=== PATIENT | female | born 1985 | race Caucasian/White ===

== ENCOUNTER 2017-03-21 16:26 | Observation (INO) | payer OTHER ==
[2017-03-21] MEDS ORDERED: DIAZEPAM 5 MG/ML 2 ML SYRINGE IVP STA (17:06)
[2017-03-21] MEDS ORDERED: KETOROLAC 30 MG/ML 1 ML VIAL IVP STA (17:20)
--- NOTE | 2017-03-21 17:36 | ED ---
Back Pain HPI - General Chief Complaint: Back Pain/Injury Stated Complaint: Back Pain Time Seen by Provider: 03/21/17 16:43 Source: patient, EMS Limitations: no limitations - History of Present Illness Initial Comments: Patient is a 32-year-old female with a past medical history of chronic low back pain who presents to the ED today via EMS for evaluation of low back pain. States that around 11 AM this morning she was leaning over to take a picture of something when she heard a pop in her back. She states she was unable to stand back up and instead laid on the ground. States she was able to crawl around her home, but was able to stand or walk. She called her mother who came over, applied heat and ice packs to her back as well as an icy hot patch. The patient and her mother attempted to do low back exercises which she has learned in her previous as ago therapy sessions. Patient states that despite these treatments she continued to have overwhelming low back pain. Her mother was concerned that she wouldn't be able to get her to the car so decision was made to call 911 for transfer to the emergency department for further evaluation. Patient received 50 g of fentanyl and route to the hospital. Patient reports pain is sharp, located in her back without radiation. She reports normal strength and sensation in her back. She denies any numbness of the perineum. Pain began suddenly after hearing a pop in her back. Patient denies fevers. She denies IV drug use or recent injections in the spine. She does believe she had a spinal injection for her 2 months ago, but had no symptoms afterward. Patient states that toradol and physical therapy have worked for her back pain in the past. She does admit to worsening low back pain during her for which she saw a chiropractor with significant improvement in her symptoms. Patient states she is currently breast feeding her 2 month old daughter so she has no concern about taking medications. - Related Data Home Medications Medication Instructions Recorded Confirmed Dextroamphetamine/Amphetamine 10 mg PO QAM 01/10/14 03/21/17 [Adderall] Acetaminophen-Codeine 300-30mg 2 tab PO BID PRN 03/21/17 03/21/17 [Tylenol #3] Ibuprofen [Motrin] 800 mg PO TID PRN 03/21/17 03/21/17 Venlafaxine HCl [Effexor XR] 75 mg PO HS 03/21/17 03/21/17 lamoTRIgine [LaMICtal] 100 mg PO HS 03/21/17 03/21/17 medroxyPROGESTERone [Depo-Provera] 150 mg IM Q90D 03/21/17 03/21/17 Allergies Allergy/AdvReac Type Severity Reaction Status Date / Time No Known Allergies Allergy Verified 01/10/14 00:35 Review of Systems ROS Statement: Those systems with pertinent positive or pertinent negative responses have been documented in the HPI. ROS Other: All systems not noted in ROS Statement are negative. Constitutional: Denies: fever, chills Respiratory: Denies: cough Cardiovascular: Denies: chest pain Endocrine: Denies: fatigue Gastrointestinal: Denies: abdominal pain, nausea, vomiting, constipation Genitourinary: Denies: urgency, dysuria, frequency Musculoskeletal: Reports: back pain Skin: Denies: rash, lesions, change in color Neurological: Reports: abnormal gait (cannot walk secondary to pain ). Denies: headache, weakness, numbness, paresthesias Hematological/Lymphatic: Denies: easy bleeding, easy bruising Past Medical History Past Medical History: GERD/Reflux Additional Past Medical History / Comment(s): ovarian cyst , hiatal hernia History of Any Multi-Drug Resistant Organisms: None Reported Past Surgical History: Section Past Psychological History: Depression Smoking Status: Current every day smoker Past Alcohol Use History: Occasional Past Drug Use History: None Reported General Exam Limitations: no limitations General appearance: alert, in distress Head exam: Present: atraumatic, normocephalic Eye exam: Present: PERRL ENT exam: Present: normal exam Neck exam: Present: normal inspection Respiratory exam: Present: normal lung sounds bilaterally. Absent: respiratory distress, wheezes Cardiovascular Exam: Present: regular rate GI/Abdominal exam: Present: soft. Absent: distended, tenderness, guarding, rebound Rectal exam: Present: normal inspection, normal rectal tone. Absent: decreased rectal tone, hemorrhoids, mass Extremities exam: Present: full ROM, normal capillary refill. Absent: tenderness, pedal edema Back exam: Present: normal inspection, tenderness, muscle spasm. Absent: CVA tenderness (R), CVA tenderness (L) Neurological exam: Present: alert, oriented X3, CN II-XII intact. Absent: motor sensory deficit Psychiatric exam: Present: agitated Skin exam: Present: warm, dry, intact, normal color. Absent: rash Course Vital Signs 03/21/17 03/21/17 03/21/17 16:33 17:26 18:56 Temperature 98.2 F 99.0 F Pulse Rate 83 59 L 61 Respiratory 22 18 18 Rate Blood Pressure 169/95 131/66 142/63 O2 Sat by Pulse 100 97 99 Oximetry 03/21/17 03/21/17 20:06 23:14 Temperature 97.9 F Pulse Rate 62 64 Respiratory 18 15 Rate Blood Pressure 138/73 124/78 O2 Sat by Pulse 97 99 Oximetry - Reevaluation(s) Reevaluation #1: Patient was reevaluated after Valium, x-ray results were discussed with the patient. Patient is still made no attempt to sit up, she states she is in too much pain to sit or stand. I had a long conversation with the patient about her back pain, patient and mother requesting computed tomography scan or MRI. I advised him that at this point there is no indication for CT at this time. Mother expressing concern that her grandfather's cancer was identified on computed tomography scan she is concerned because the patient has had a long history of low back pain. I advised her that she has no risk factors for metastatic disease and likely needs long-term follow-up with her primary care, neurosurgery or pain management regarding her back pain. At this time I will order steroids and re-evaluate 03/21/17 18:47 Reevaluation #2: Patient screaming in pain, states she cannot go home. Morphine ordered 03/21/17 19:18 Medical Decision Making - Medical Decision Making Patient was seen and evaluated, history obtained from patient History and physical exam with no red flags for acute back pain, however we will order x-ray Patient received Fentanyl en route Toradol and Valium ordered X-ray with no acute findings Patient screaming out in pain despite Fentanyl, Toradol, valium Patient resting steroid injection in her back, I advised her this is not done in the acute. It is not on by ER physicians. Systemic steroids were ordered Patient continues screaming out in pain, computed tomography scan was ordered as well as a second dose of narcotic pain medication D scan with the L5-S1 disc herniation Results were discussed with the patient, patient asking if this herniation to cause radiating pain down her right leg, I advised the patient that the herniation is to the left and unlikely to be causing her symptoms in addition her pain seemed to be at L1-L2 on initial physical exam Tj think this herniation is related to her acute pain Despite laying in bed comfortably the patient refuses to attempt to sit up, when the head of her bed was elevated she began screaming. Patient was given laid flat she reported felt better The workup in the emergency department has not identified any organic cause of the patient's pain, however the patient is unwilling to sit, stand or attempt to walk. Because of this I don't feel the patient is stable for discharge home and needs further evaluation. I do feel that based on the patient's history she is high risk of having psychosomatic pain, especially in the immediate period where she is clinically undergoing extreme psychological stress. Patient care was discussed with Dr. Latham who accepts the patient to observation unit for intractable pain - Lab Data Result diagrams: 03/21/17 19:40 03/21/17 19:40 Lab Results 03/21/17 03/21/17 03/21/17 Range/Units 19:40 19:40 20:00 WBC 7.4 (3.8-10.6) k/uL RBC 4.10 (3.80-5.40) m/uL Hgb 12.3 (11.4-16.0) gm/dL Hct 36.2 (34.0-46.0) % MCV 88.3 (80.0-100.0) fL MCH 30.0 (25.0-35.0) pg MCHC 33.9 (31.0-37.0) g/dL RDW 14.8 (11.5-15.5) % Plt Count 298 (150-450) k/uL Neutrophils % 61 % Lymphocytes % 33 % Monocytes % 3 % Eosinophils % 1 % Basophils % 0 % Neutrophils # 4.5 (1.3-7.7) k/uL Lymphocytes # 2.4 (1.0-4.8) k/uL Monocytes # 0.2 (0-1.0) k/uL Eosinophils # 0.1 (0-0.7) k/uL Basophils # 0.0 (0-0.2) k/uL Sodium 140 (137-145) mmol/L Potassium 3.6 (3.5-5.1) mmol/L Chloride 112 H (98-107) mmol/L Carbon Dioxide 20 L (22-30) mmol/L Anion Gap 8 mmol/L BUN 12 (7-17) mg/dL Creatinine 0.69 (0.52-1.04) mg/dL Est GFR (MDRD) Af Amer >60 (>60 ml/min/1.73 sqM) Est GFR (MDRD) Non-Af >60 (>60 ml/min/1.73 sqM) Glucose 86 (74-99) mg/dL Calcium 9.0 (8.4-10.2) mg/dL Urine Color Light Red Urine Appearance Cloudy H (Clear) Urine pH 6.0 (5.0-8.0) Ur Specific [place] 1.023 (1.001-1.035) Urine Protein 1+ H (Negative) Urine Glucose (UA) Negative (Negative) Urine Ketones Negative (Negative) Urine Blood Moderate H (Negative) Urine Nitrite Negative (Negative) Urine Bilirubin Negative (Negative) Urine Urobilinogen <2.0 (<2.0) mg/dL Ur Leukocyte Esterase Negative (Negative) Urine RBC >182 H (0-5) /hpf Urine WBC 3 (0-5) /hpf Ur Squamous Epith Cells 3 (0-4) /hpf Urine Mucus Occasional H (None) /hpf Urine HCG, Qual (Not Detectd) 03/21/17 Range/Units 20:00 WBC (3.8-10.6) k/uL RBC (3.80-5.40) m/uL Hgb (11.4-16.0) gm/dL Hct (34.0-46.0) % MCV (80.0-100.0) fL MCH (25.0-35.0) pg MCHC (31.0-37.0) g/dL RDW (11.5-15.5) % Plt Count (150-450) k/uL Neutrophils % % Lymphocytes % % Monocytes % % Eosinophils % % Basophils % % Neutrophils # (1.3-7.7) k/uL Lymphocytes # (1.0-4.8) k/uL Monocytes # (0-1.0) k/uL Eosinophils # (0-0.7) k/uL Basophils # (0-0.2) k/uL Sodium (137-145) mmol/L Potassium (3.5-5.1) mmol/L Chloride (98-107) mmol/L Carbon Dioxide (22-30) mmol/L Anion Gap mmol/L BUN (7-17) mg/dL Creatinine (0.52-1.04) mg/dL Est GFR (MDRD) Af Amer (>60 ml/min/1.73 sqM) Est GFR (MDRD) Non-Af (>60 ml/min/1.73 sqM) Glucose (74-99) mg/dL Calcium (8.4-10.2) mg/dL Urine Color Urine Appearance (Clear) Urine pH (5.0-8.0) Ur Specific [place] (1.001-1.035) Urine Protein (Negative) Urine Glucose (UA) (Negative) Urine Ketones (Negative) Urine Blood (Negative) Urine Nitrite (Negative) Urine Bilirubin (Negative) Urine Urobilinogen (<2.0) mg/dL Ur Leukocyte Esterase (Negative) Urine RBC (0-5) /hpf Urine WBC (0-5) /hpf Ur Squamous Epith Cells (0-4) /hpf Urine Mucus (None) /hpf Urine HCG, Qual Not Detected (Not Detectd) Disposition Clinical Impression: Lumbar back pain Disposition: ADMITTED IP TO THIS [facility] Condition: Good Time of Disposition: 23:06
--- NOTE | 2017-03-21 17:59 | XR ---
EXAMINATION TYPE: XR lumbar spine 2 or 3V DATE OF EXAM: 03/21/2017 COMPARISON: NONE HISTORY: Back pain TECHNIQUE: 3 views FINDINGS: Vertebrae are normal spacing and alignment. Posterior elements are intact. Sacroiliac joint s appear normal. IMPRESSION: Normal lumbar spine exam
[2017-03-21] MEDS ORDERED: methylPREDNISolone SOD SUCCI 125 MG/2 ML VIAL IV STA (18:29)
[2017-03-21] MEDS ORDERED: MORPHINE SULFATE 4 MG/ML SYRINGE IV ONE (19:17)
[2017-03-21 19:50] LABS: Basophils % (A) 0 %; CH 29.9; Eosinophils # (A) 0.1 k/uL (0-0.7); Eosinophils % (A) 1 %; HCT 36.2 % (34.0-46.0); HGB 12.3 gm/dL (11.4-16.0); Luc # (Auto) 0.08; Luc % (Auto) 1; Lymphocytes # (A) 2.4 k/uL (1.0-4.8); Lymphocytes % (A) 33 %; MCHC 33.9 g/dL (31.0-37.0); MCV 88.3 fL (80.0-100.0); Mean Platelet Volume 6.8; Monocytes # (A) 0.2 k/uL (0-1.0); Monocytes % (A) 3 %; Neutrophils # (A) 4.5 k/uL (1.3-7.7); Neutrophils % (A) 61 %; RDW 14.8 % (11.5-15.5); WBC 7.4 k/uL (3.8-10.6); WBC (Perox) 7.79
[2017-03-21 20:00] LABS: Anion Gap 8 mmol/L; Blood Urea Nitrogen 12 mg/dL (7-17); Carbon Dioxide 20 mmol/L (22-30); Chloride 112 mmol/L (98-107); Glucose 86 mg/dL (74-99); Non-African American GFR(MDRD) >60 (>60 ml/min/1.73 sqM); Potassium 3.6 mmol/L (3.5-5.1); Sodium 140 mmol/L (137-145)
[2017-03-21 20:24] LABS: Appearance,Urine Cloudy (Clear); Bilirubin,Urine Negative (Negative); Glucose,Urine (UA) Negative (Negative); Ketones,Urine Negative (Negative); Leukocyte Esterase,Urine Negative (Negative); Mucus,Urine Occasional /hpf; Nitrite,Urine Negative (Negative); Particle Count 9816; Protein,Urine 1+ (Negative); RBC,Urine >182 /hpf (0-5); Specific Gravity,Urine 1.023 (1.001-1.035); Squamous Epithelial Cell,Urine 3 /hpf (0-4); UA Billing (MACRO vs. MICRO) MICRO; Urobilinogen,Urine <2.0 mg/dL (<2.0); WBC,Urine 3 /hpf (0-5)
[2017-03-21] MEDS ORDERED: RX INFO: IV CONTRAST WAS GIVEN 1 EACH MISC MISCELLANE PRN (20:31)
--- NOTE | 2017-03-21 21:42 | CT ---
EXAMINATION TYPE: CT lumbar spine w con DATE OF EXAM: 03/21/2017 COMPARISON: NONE HISTORY: Lower back pain. No known injury. CT DLP: 1476.5 mGycm Automated exposure control for dose reduction was used. CONTRAST: CT scan of the lumbar is performed with IV Contrast, patient injected with 100 mL of Omnipaque 300. Enhanced CT of the lumbar spine was performed. Bone and soft tissue window settings are submitted as well as coronal and sagittal reconstructions. The lumbar vertebra have fairly normal alignment. There is a slight levoscoliosis. Disc spaces are no rmal. The posterior elements are intact. There is no sign of spinal stenosis. There is no lumbar para spinal mass. There is a mild to moderate posterior L5-S1 disc herniation into the spinal canal centrally and towar ds the left side. The neural foramina are fairly well maintained. I see no focal bone destruction. Th ere is no pathologic enhancement. IMPRESSION: Posterior central and left-sided L5-S1 disc herniation. No spinal stenosis. No fracture. Mild levosco liosis.
[2017-03-21] MEDS ORDERED: ACETAMINOPHEN TAB 325 MG TAB PO PRN (23:07)
[2017-03-21] MEDS ORDERED: NALOXONE 0.4 MG/ML 1 ML VIAL IV PRN (23:07)
[2017-03-21 23:44] VITALS: BMI 28.3
[2017-03-21 23:53] VITALS: RESP 16
[2017-03-22] MEDS: KETOROLAC 30 MG/ML 1 ML VIAL IVP PRN ×3 (01:41→13:26)
--- NOTE | 2017-03-22 10:13 | P.CNOR ---
History of Present Illness - HPI Consult date: 03/22/17 Consult reason: low back pain History of present illness: Patient is a 32-year-old female who has a long-standing history of low back pain but developed exacerbation of her back pain yesterday. She says that she was bending over to take pictures and arrange some items when she felt her back "go out". She says she had significant pain in her lower back and it spread down bilateral lower extremities to the backs of her thighs down to her knees. She denies any changes in bowel bladder function she denies any loss of consciousness. She denies any other specific trauma or injury. She says that this happens to her occasionally but this was more severe than usual. She denies any loss of consciousness. She denies any chest pain or shortness breath. She received some medications in the emergency room and was unable to get up and around and was admitted in regards to her back. She says that today she is doing a little bit better. She has been able to move around in bed though it had still has pain with standing and mobilization. She feels that she will be able to stand and walk today. Review of Systems She denies any chest pain short of breath. She denies any headaches fevers or loss consciousness. She denies any recent illness. She denies any specific trauma other than that incident when she was bending over has stated in their HPI. Past Medical History Past Medical History: GERD/Reflux Additional Past Medical History / Comment(s): ovarian cyst , hiatal hernia History of Any Multi-Drug Resistant Organisms: None Reported Past Surgical History: Section Past Psychological History: Depression Smoking Status: Current every day smoker Past Alcohol Use History: Occasional Past Drug Use History: None Reported Medications and Allergies Home Medications Medication Instructions Recorded Confirmed Type Dextroamphetamine/Amphetamine 10 mg PO QAM 01/10/14 03/21/17 History [Adderall] Acetaminophen-Codeine 300-30mg 2 tab PO BID PRN 03/21/17 03/21/17 History [Tylenol #3] Ibuprofen [Motrin] 800 mg PO TID PRN 03/21/17 03/21/17 History Venlafaxine HCl [Effexor XR] 75 mg PO HS 03/21/17 03/21/17 History lamoTRIgine [LaMICtal] 100 mg PO HS 03/21/17 03/21/17 History medroxyPROGESTERone [Depo-Provera] 150 mg IM Q90D 03/21/17 03/21/17 History Allergies Allergy/AdvReac Type Severity Reaction Status Date / Time No Known Allergies Allergy Verified 01/10/14 00:35 Physical Examination Osteopathic Statement: *. No significant issues noted on an osteopathic structural exam other than those noted in the History and Physical/Consult. - L Spine: dermatomal strength & reflexes bilateral Strength: hip flexion: 5/5 (Her back is having some spasm bilateral paraspinals at her lower lumbar spine. There is no open wounds lacerations or abrasions. Her lower extremity she does have sustained dorsal flexion plantar flexion and EHL intact bilaterally. She has no pain with internal extra rotation of her hips or thighs. Her thighs and calves soft nontender. She has a positive the lumbosacral spine. Positive pain with excessive flexion at her lower extremities bilaterally.) Results - Labs Labs: Abnormal Lab Results - Last 24 Hours (Table) 03/21/17 03/21/17 Range/Units 19:40 20:00 Chloride 112 H (98-107) mmol/L Carbon Dioxide 20 L (22-30) mmol/L Urine Appearance Cloudy H (Clear) Urine Protein 1+ H (Negative) Urine Blood Moderate H (Negative) Urine RBC >182 H (0-5) /hpf Urine Mucus Occasional H (None) /hpf H & H 03/21/17 Range/Units 19:40 Hgb 12.3 (11.4-16.0) gm/dL Hct 36.2 (34.0-46.0) % Result Diagrams: 03/21/17 19:40 03/21/17 19:40 - Diagnostic results Lumbar AP/lateral x-ray: report reviewed, image reviewed CT Scan - lumbar: report reviewed, image reviewed (X-rays and computed tomography scan of lumbar spine reviewed. Her x-rays do not show any bony instability or fracture. There is good overall alignment and position. There is well-maintained disc height. Computed tomography scan is also reviewed with no evidence of bony instability or fracture. There is some disc protrusion at L5-S1 with broad-based particular toward the left with some left foraminal encroachment.) Assessment and Plan Plan: Acute on chronic low back pain Bilateral lower extremity radiculopathy Herniated disc L5-S1 The patient has acute on chronic lumbar issues stemming from an incident when she felt her back allowed about bending over. She is not having any focal neurologic deficit at this point. She feels though she is making some progress with medications here in the hospital. I think she can continue to make improvement with a dedicated course of oral steroid medications. We will have her take prednisone 10 mg tablets 3 a day for 4 days and then 2 a day for 4 days and then 1 a day for 4 days which will hopefully help resolve her symptoms. She should hold off on her Motrin that she takes at home while she is on the steroid. We also discussed the possibility of interventional pain management with her she would like to hold off on this for now. She feels that she is okay to get up and mobilized today and feels that she would be able to be discharged home today which is okay from an orthopedic standpoint. From an orthopedic spine standpoint is okay for him to be discharged home today if she is stable with her primary care service and can follow-up with us on an outpatient basis in the next 1-2 weeks for recheck evaluation. We will be able to see how she is doing with her oral steroids and also consider further imaging if necessary.
[2017-03-22 14:50] VITALS: BP 122/67; PULSE 72; TEMP 97.8
--- NOTE | 2017-03-22 16:35 | P.HPIM ---
History of Present Illness H&P Date: 03/22/17 Chief Complaint: Back pain This is a 32-year-old female with past medical history noted below significant for chronic back pain that presented to the emergency room yesterday with worsening low back pain. 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 She was in a lot of pain and presented to the emergency room. There was no numbness or tingling going down her legs. No muscle weakness. No urine or fecal incontinence. She was evaluated in the emergency room and computed tomography scan Of the lumbar spine showed evidence of L5/S1 disc herniation. There was no evidence of fracture or spinal stenosis. Patient was placed on observation and was evaluated by spine/orthopedic surgery. No surgical intervention recommended. Patient was prescribed a tapering course steroids. She was cleared for discharge. She was given prescription for a walker. She will follow-up with her primary care physician and spine/orthopedic surgery in the office as directed. Review of Systems Review of system: 14 points review of systems were obtained and were negative except to what were mentioned in the HPI. Past Medical History Past Medical History: GERD/Reflux Additional Past Medical History / Comment(s): ovarian cyst , hiatal hernia History of Any Multi-Drug Resistant Organisms: None Reported Past Surgical History: Section Past Psychological History: Depression Smoking Status: Current every day smoker Past Alcohol Use History: Occasional Past Drug Use History: None Reported Medications and Allergies Home Medications Medication Instructions Recorded Confirmed Type Dextroamphetamine/Amphetamine 10 mg PO QAM 01/10/14 03/21/17 History [Adderall] Acetaminophen-Codeine 300-30mg 2 tab PO BID PRN 03/21/17 03/21/17 History [Tylenol #3] Ibuprofen [Motrin] 800 mg PO TID PRN 03/21/17 03/21/17 History Venlafaxine HCl [Effexor XR] 75 mg PO HS 03/21/17 03/21/17 History lamoTRIgine [LaMICtal] 100 mg PO HS 03/21/17 03/21/17 History medroxyPROGESTERone [Depo-Provera] 150 mg IM Q90D 03/21/17 03/21/17 History Allergies Allergy/AdvReac Type Severity Reaction Status Date / Time No Known Allergies Allergy Verified 01/10/14 00:35 Physical Exam Vitals: Vital Signs Temp Pulse Pulse Resp BP BP Pulse Ox 03/22/17 14:48 97.8 F 72 16 122/67 90 L 03/22/17 07:23 98.5 F 88 16 112/76 96 03/22/17 02:21 96.4 F L 71 16 120/74 94 L 03/21/17 23:42 96.5 F L 71 16 156/96 97 03/21/17 23:14 97.9 F 64 15 124/78 99 03/21/17 20:06 62 18 138/73 97 03/21/17 18:56 99.0 F 61 18 142/63 99 03/21/17 17:26 59 L 18 131/66 97 Intake and Output 03/22/17 03/22/17 03/22/17 06:59 14:59 22:59 Intake Total 200 360 Balance 200 360 Intake: Oral 360 Other 200 Other: # Voids 3 2 Weight 77.111 kg General: The patient is awake and alert, in no distress Eye: there is normal conjunctiva bilaterally. Neck: The neck is supple, there is no JVD. Cardiovascular: Normal S1-S2, no S3-S4, no murmurs. Respiratory: Lungs clear to auscultation bilaterally Gastrointestinal: Abdomen is soft, nontender Musculoskeletal: There is no pedal edema. Neurological:. Speech is normal. Skin: Skin is warm and dry Results CBC & Chem 7: 03/21/17 19:40 03/21/17 19:40 Labs: Abnormal Lab Results - Last 24 Hours (Table) 03/21/17 03/21/17 Range/Units 19:40 20:00 Chloride 112 H (98-107) mmol/L Carbon Dioxide 20 L (22-30) mmol/L Urine Appearance Cloudy H (Clear) Urine Protein 1+ H (Negative) Urine Blood Moderate H (Negative) Urine RBC >182 H (0-5) /hpf Urine Mucus Occasional H (None) /hpf Assessment and Plan Plan: This is a 32-year-old female with past medical history noted below significant for chronic back pain that presented to the emergency room yesterday with worsening low back pain. 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 She was in a lot of pain and presented to the emergency room. There was no numbness or tingling going down her legs. No muscle weakness. No urine or fecal incontinence. She was evaluated in the emergency room and computed tomography scan Of the lumbar spine showed evidence of L5/S1 disc herniation. There was no evidence of fracture or spinal stenosis. Patient was placed on observation and was evaluated by spine/orthopedic surgery. No surgical intervention recommended. Patient was prescribed a tapering course steroids. She was cleared for discharge. She was given prescription for a walker. She will follow-up with her primary care physician and spine/orthopedic surgery in the office as directed.
--- NOTE | 2017-03-22 16:36 | P.DS ---
Providers Date of admission: 03/21/17 23:07 Expected date of discharge: 03/22/17 Attending physician: Charlotte Latham Consults: 03/22/17 08:01 Consult Physician Routine Consulting Provider: Tone Holt Consult Reason/Comments: back pain Do you want consulting provider notified?: Yes Primary care physician: [facility] Course: This is a 32-year-old female with past medical history noted below significant for chronic back pain that presented to the emergency room yesterday with worsening low back pain. 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 She was in a lot of pain and presented to the emergency room. There was no numbness or tingling going down her legs. No muscle weakness. No urine or fecal incontinence. She was evaluated in the emergency room and computed tomography scan Of the lumbar spine showed evidence of L5/S1 disc herniation. There was no evidence of fracture or spinal stenosis. Patient was placed on observation and was evaluated by spine/orthopedic surgery. No surgical intervention recommended. Patient was prescribed a tapering course steroids. She was cleared for discharge. She was given prescription for a walker. She will follow-up with her primary care physician and spine/orthopedic surgery in the office as directed. Patient Condition at Discharge: Good Plan - Discharge Summary New Discharge Prescriptions: New predniSONE 10 mg PO DIRECTED #24 tab Continue Dextroamphetamine/Amphetamine [Adderall] 10 mg PO QAM Acetaminophen-Codeine 300-30mg [Tylenol w/codeine #3] 2 tab PO BID PRN PRN Reason: Severe Pain medroxyPROGESTERone [Depo-Provera] 150 mg IM Q90D lamoTRIgine [LaMICtal] 100 mg PO HS Venlafaxine HCl [Effexor XR] 75 mg PO HS Ibuprofen [Motrin] 800 mg PO TID PRN PRN Reason: Pain Discharge Medication List Dextroamphetamine/Amphetamine [Adderall] 10 mg PO QAM 01/10/14 [History] Acetaminophen-Codeine 300-30mg [Tylenol w/codeine #3] 2 tab PO BID PRN 03/21/17 [History] Ibuprofen [Motrin] 800 mg PO TID PRN 03/21/17 [History] Venlafaxine HCl [Effexor XR] 75 mg PO HS 03/21/17 [History] lamoTRIgine [LaMICtal] 100 mg PO HS 03/21/17 [History] medroxyPROGESTERone [Depo-Provera] 150 mg IM Q90D 03/21/17 [History] predniSONE 10 mg PO DIRECTED #24 tab 03/22/17 [Rx] Follow up Appointment(s)/Referral(s): Tone Holt DO [Doctor of Osteopathic Medicine] - 2 Weeks (With Master Yanez at Dr. Holt's office) Kay Mesa DO [Primary Care Provider] - 3 Days Activity/Diet/Wound Care/Special Instructions: May ambulate to tolerance. Avoid heavy or rigorous activity. No repetitive bending twisting or lifting. Rolling walker through [place] [phone]
== END 2017-03-22 17:46 | disposition home or self-care (01) ==
LOC: EC 16:26 → 3SUR 23:07
PROVIDERS: ADMIT Internal Medicine; ATTEND Internal Medicine
DX: M54.5 Low back pain (principal); G89.29 Other chronic pain; M51.17 Intervertebral disc disorders with radiculopathy, lumbosacral region; R26.2 Difficulty in walking, not elsewhere classified; F32.9 Major depressive disorder, single episode, unspecified; F17.200 Nicotine dependence, unspecified, uncomplicated; Z79.899 Other long term (current) drug therapy; X50.1XXA Overexertion from prolonged static or awkward postures, initial encounter
CPT/HCPCS: 96375 ×4; 96374; 99285; 96376; 36415; 97162; 80048; 85025; 81001; 81025; 72100; 72132; G0378 ×2; J2270; J2930; J3360; J1885 ×2; Q9967